=== PATIENT | male | born 1965 | race Caucasian/White ===

== ENCOUNTER 2023-02-15 05:01 | Emergency (ER) | payer SELFPAY ==
[~2023-02-15] VITALS: Ht 170.2 cm; Wt 79.8 kg
[2023-02-15 05:16] VITALS: BP_SYST 207
--- NOTE | 2023-02-15 05:32 | NUR ---
BS OF 217. MADE AWARE.
--- NOTE | 2023-02-15 06:09 | NUR ---
PT BIB PD FOR OKAY TO BOOK. PT DENIES DISCOMFORT AND PAIN AT THIS TIME. PD BROUGHT PATIENT IN DUE TO HX OF DM. BP OF 207/104. MADE AWARE.
--- NOTE | 2023-02-15 06:18 | NUR ---
DR. BURRELL WITH PATIENT FOR MSE, ACCOMPANIED BY PD.
[2023-02-15] MEDS ORDERED: cloNIDine HCL 0.1 MG TABLET PO ONE (06:30)
--- NOTE | 2023-02-15 06:37 | NUR ---
BP OF 186/93. DR. BURRELL MADE AWARE. MD REQUESTED TO HOLD BP MEDICATION.
[2023-02-15 06:40] VITALS: BP_SYST 186
--- NOTE | 2023-02-15 06:46 | NUR ---
Patient given written and verbal discharge instructions and verbalizes understanding. ER DR. BURRELL discussed with patient the results and treatment provided. Patient in stable condition. ID arm band removed. Patient educated on pain management and to follow up with PMD. Pain Scale 0. Opportunity for questions provided and answered. Medication side effect fact sheet provided. DISCHARGE TO PD.
== END 2023-02-15 06:46 ==
LOC: SED 05:01
DX: Z02.89 Encounter for other administrative examinations (principal)
CPT/HCPCS: 99283